=== PATIENT | female | born 1955 | race Caucasian/White ===

== ENCOUNTER 2020-11-30 01:28 | Inpatient (IN) | payer MEDICARE ==
--- NOTE | 2020-11-30 02:03 | NUR ---
PT IS ADMITTED TO UNIT FOR PREVIOUS ATTEMPTS OF SUICIDE. 2 WEEKS AGO SHE ATTEMPTED TO HANG HER SELF. BROUGHT HER TO [facility] DUE TO INABILITY TO SWALLOW SOLIDS. PT REPORTS THAT SHE ATTEMPTED TO HANG HERSELF 2 DAYS AGO AND HE HAD TO CUT HER DOWN. PT HAS A HX OF BIPOLAR AND DEPRESSION BUT RELATES THAT SHE DOESNT TAKE ANY MEDICATIONS. PT ARRIVED TO UNIT WITH EMS STAFF. ABLE TO AMBULATE ON HER OWN AND CONT OF BOWEL AND BLADDER. CALM AND COOPERATIVE WITH STAFF. COVID TEST COMPLETED AND SENT TO LAB. DISCUSSED ALL POLICIES WITH PT. PT STATES SHE WANTS TO BE A DNR AND IS NOT TO RECEIVED BLOOD TRANSFUSIONS. SHE STATES "THE ONLY PERSON TO CONTACT HER OR ASK ABOUT HER IS HER VANDANA. HIS PHONE NUMBER IS [phone]. LEFT 2 VOICEMAILS. PERSONAL ITEMS INVENTORIED AND PLACED IN STORAGE UNIT. CALM AND COOPERATIVE WITH STAFF.
[2020-11-30 05:01] VITALS: BP 95/72; BMI 24.2
[2020-11-30 06:14] LABS: BASOPHILS 0.3 % (0-2); EOSINOPHILS 0.6 % (0-7); HEMATOCRIT 41.8 % (36.0-48.0); HEMOGLOBIN 13.7 g/dL (12-16); IMMATURE GRANULOCYTES 0.3 % (0-5); LYMPHOCYTE ABS# 1.42 10x3/uL (1.18-3.74); LYMPHOCYTES 21.7 % (15-50); MCH 30.3 pg (26.0-34.0); MCHC 32.8 g/dL (31.0-37.0); MCV 92.5 fL (80.0-100.0); MEAN PLATELET VOLUME 10.5 fL (7.4-10.4); MONOCYTES 10.5 % (2-11); NEUTROPHIL ABS# 4.36 10x3/uL (1.56-6.13); NEUTROPHILS 66.6 % (40-80); PLATELET COUNT 304 10x3/uL (130-400); RBC 4.52 10x6/uL (4.00-5.40); RDW 13.4 % (11.5-14.5); WBC 6.6 10x3/uL (4.8-10.8)
[2020-11-30 08:04] LABS: ALBUMIN 3.3 g/dL (3.4-5.0); ALKALINE PHOSPHATASE 47 U/L (30-120); ALT (SGPT) 24 U/L (10-68); BILIRUBIN - TOTAL 0.75 mg/dL (0.2-1.3); CALC OSMOLALITY 279 mosm/kg (275-300); CALCIUM 8.7 mg/dL (8.5-10.1); CARBON DIOXIDE 25.6 mmol/L (21.0-32.0); CHLORIDE - SERUM 106 mmol/L (98-107); CHOL - HDL RATIO 4.3 ratio (2.3-4.1); CHOLESTEROL, TOTAL 156 mg/dL (0-200); CREATININE - SERUM 0.8 mg/dL (0.6-1.3); GLUCOSE 119 mg/dL (74-106); HDL CHOLESTEROL 36 mg/dL (32-96); LDL CHOLESTEROL 104 mg/dL (0-100); LDL-HDL RATIO 2.9 ratio (1.5-3.5); POTASSIUM - SERUM 4.4 mmol/L (3.5-5.1); SODIUM 139 mmol/L (136-145); THYROID STIMULATING HORMONE 3.55 uIU/mL (0.36-3.74); TRIGLYCERIDE 82 mg/dL (30-200); UREA NITROGEN 14 mg/dL (7-18); eGFR NON AFRICAN AMERICAN 76 mL/min (90-120)
[2020-11-30 08:14] VITALS: BP 104/67
--- NOTE | 2020-11-30 11:12 | NUR ---
The patient is concerned about a [employer] credit card. There is no [employer] credit card in her wallet. Spoke to the patient's spouse and he says he does not have the credit card and so he plans to cancel the card. Called the [facility] in [place], spoke to Miri and he said the patient was on Trazadone 50 mg PO at HS, but it has not been filled since July. He also said she was on Levothyroxine 25 mcg PO qa and Valproic Acid DR 1000 mg po at HS, but those have not been filled since 01/18/20. The spouse also states she was also on Invega injections, but she stopped taking the injections four months ago.
[2020-11-30 13:16] VITALS: Wt 69.8 kg
[2020-11-30 20:00] VITALS: BP 115/75
--- NOTE | 2020-11-30 22:17 | NUR ---
PT IS ALERT AND ORIENTED X4. SHE IS RECEIVED IN HER ROOM ON DROPLET ISOLATION. SHE IS CALM AND COOPERATIVE WITH STAFF. COMPLIANT WITH ALL MEDICATIONS. EASY TO REDIRECT. DENIES ANY SI AT THIS TIME. MONITOR FOR SAFETY.
[2020-12-01 09:00] VITALS: BP 128/82
--- NOTE | 2020-12-01 09:03 | NUR ---
The patient remains in her room, she has been pleasant and compliant to stay in her room as she is on isolation until her Covid test results. Unfortunately lab called and said we will need to do another Covid test, but they will not send it off until Wednesday. She ambulates, toilets, and feeds herself. She is anxious about being here. She denies S.I. Provide prescribed meds. The patient is compliant with meds. Continue POC.
--- NOTE | 2020-12-01 14:41 | NUR ---
The patient's spouse called and said "Elizabeth quit going to IOP because her eye and face began twitching while she was taking the Invega and she did not want to be seen like that." let him know "We appreciate the information, I'll pass it on."
--- NOTE | 2020-12-01 19:22 | NUR ---
RECEIVED IN BEDROOM. RESTING IN BED WITH EYES OPEN. CALM AND COOPERATIVE WITH CARE AND ASSESSMENT. NO STATEMENTS OF SELF HARM VOICED THIS EVENING. ENCOURAGE TO EXPRESS NEEDS. CONTINUE PLAN OF CARE.
[2020-12-01 21:35] VITALS: BP 112/74
--- NOTE | 2020-12-02 06:58 | NUR ---
COVID SWAB COLLECTED AND SENT TO LAB PER POLICY.
[2020-12-02 08:08] LABS: RAPID PLASMA REAGIN Non Reactive (Non Reactive)
[2020-12-02 10:31] VITALS: BP 120/89
--- NOTE | 2020-12-02 13:41 | PSY ---
PATIENT NAME:KALIN NUNEZ MEDICAL RECORD: [id number] : 53 LOCATION:[facility] ADMISSION DATE: 11/30/20 ACCOUNT: [id number] PSYCHIATRIC EVALUATION DATE OF EVALUATION: 11/30/20 IDENTIFYING DATA: This patient is a 65-year-old female who was admitted voluntarily to the hospital and appears her stated age. CHIEF COMPLAINT: Having difficulty swallowing. HISTORY OF PRESENT ILLNESS: The patient was brought to [facility] from early this a.m. after being brought to the Emergency Room after she had used a scarf to attempt to hang herself. Reportedly a couple days ago, the patient reports that she was having difficulty swallowing and therefore had stopped eating. The patient reports that she made a horrible-horrible mistake. She reports that she has been a burden to people. Spouse reports that she had admitted that she was trying to hurt herself to her spouse. Today, the patient was still questioning whether or not she had the ability to swallow any medications. The patient reports that she had taken Invega injection and that had helped; however, she is very concerned about whether or not insurance would pay for it and that they would not be able to afford it. The patient also reports that she feels very anxious. PAST MEDICAL HISTORY: The patient has a left hemifacial spasm. The patient reports that acupuncture has been helpful historically. She also states she has trouble swallowing. She has hypothyroidism. She has a history of constipation. PAST PSYCHIATRIC HISTORY: The patient reports that it was about the age of 39 when she first had her illness. The patient reports that she has had episodes where she had difficulty sleeping. She reports that she had one time when she could not sleep for several days. At that time, she did take some trazodone to help her sleep, which ended up to be a mistake because she took one and then another and then another and then another and ultimately took too many. She then states that the next day when she went and had her Invega injection that there was just something that happened and it really got messed up. The patient reports that she did attend an [facility] for about 3 to 4 hours one day a week. She last went to that in July. She states that she has been diagnosed with bipolar and anxiety and has a history of panic attacks. She states that alcohol used to help decrease her panic attacks and her anxiety. The patient states that she believes that she was in the hospital one time before. She states that the Invega injection was helpful and she just made a wrong decision by stopping it. FAMILY HISTORY: The patient reports that she has an uncle that was diagnosed with bipolar. She denies parents or siblings with any mental illness. SOCIAL HISTORY: The patient is . She has been for 43 years. They have one daughter, that daughter lives in [place]. She states that she does talk with her; however, the COVID has been rather distressing for them. 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 She and her worked together. She states they did something with schools. She states that she did use alcohol. She denies any other recreational drugs and she denies ever smoking. MENTAL STATUS EXAM: The patient's general appearance is mildly disheveled. She is alert and oriented to person, place, time and situation. Her speech is soft, low tone, low volume. Her associations are moderately loose. Her eye contact is good. Her judgment is impaired. Her impulsivity is moderate. Her affect is flat narrow in range. Her mood is depressed and anxious. She appears guarded. Her memory is fair for both recent and remote events. The patient does not appear to be actively attending to either visual or auditory hallucinations. The patient's judgment and insight into illness are poor. She appears to have some thought blocking. ASSESSMENT: AXIS I: Bipolar I disorder, most recent episode is depressed with anxiety. AXIS II: Deferred. AXIS III: Includes left hemifacial spasms, hypothyroidism. AXIS IV: Moderate stressors. AXIS V: Global assessment of functioning is 45. PLAN: At this time, the patient is going to be admitted for comprehensive medical, psychological, and social evaluation. She is going to be treated with both mood stabilizing, thought and memory enhancing medications. Her long-term prognosis is fair. We will also strive to keep the patient safe from harming herself. We will initiate Invega 6 mg by mouth daily. We will also restart her Depakote 1000 mg daily and her levothyroxine 25 mcg daily. We will draw her Depakote level on 12/01/2020. Also, psychoeducation regarding medications was provided to the patient. Dictated By: Hailey Wren APN I have interviewed/examined the above patient and agree with these documented findings. TRANSINT:[id number] Voice Confirmation ID: [id number] DOCUMENT ID: [id number] Dictated By: HAILEY WREN I have interviewed/examined the above patient and agree with these documented findings. PAU SHIPLEY MD at 1341 at 1319 CC: [id number] DICTATION DATE: 11/30/20 1538 MIXER OPERATOR VACUUM PAN SALT: 11/30/20 1616 ADM IN [facility] [address] [place] [address]
--- NOTE | 2020-12-02 17:45 | NUR ---
RECEIVED IN PATIENT ROOM. SITTING IN CHAIR. CALM AND COOPERATIVE WITH CARE AND ASSESSMENT. DENIES SUICIDAL IDEATION. REDRIECT AND REORIENT NEEDED. EATING DINNER AT THIS TIME. CONTINUE PLAN OF CARE.
--- NOTE | 2020-12-02 21:41 | NUR ---
RECEIVED IN BEDROOM. RESTING QUIETLY IN BED WITH EYES OPEN. CALM AND COOPERATIVE WITH CARE AND ASSESSMENT. NO STATEMENTS OF SELF HARM VOICED THIS EVENING. ENCOURAGE TO EXPRESS NEEDS. RESTING IN BED WITH EYES CLOSED AT THIS TIME. CONTINUE PLAN OF CARE.
[2020-12-02 22:55] VITALS: BP 111/71
[2020-12-03 00:06] LABS: BILIRUBIN NEGATIVE (NEGATIVE); KETONE NEGATIVE (NEGATIVE); NITRITE NEGATIVE (NEGATIVE); UROBILINOGEN NORMAL mg/dL (< 2)
[2020-12-03 00:08] LABS: BACTERIA FEW HPF (NONE SEEN); SQUAMOUS EPITHELIAL 0-5 HPF (0-4)
[2020-12-03 08:00] VITALS: BP 126/75
--- NOTE | 2020-12-03 11:37 | NUR ---
RECEIVED IN PATIENT ROOM. SITTING ON SIDE OF BED. COOPERATIVE WITH CARE AND ASSESSMENT. ANXIOUS. DENIES SUICIDAL IDEATION. REDIRECT AND REORIENT NEEDED. EATING DINNER AT THIS TIME. CONTINUE PLAN OF CARE.
--- NOTE | 2020-12-03 13:17 | PN ---
PATIENT:KALIN NUNEZ MEDICAL RECORD: [id number] LOCATION:[facility] ADMISSION DATE: 11/30/20 PROGRESS NOTE DATE OF SERVICE: 12/02/2020 SUBJECTIVE: The patient's case was discussed with staff. She has no new complaint. OBJECTIVE: The patient is in good behavioral control. She is taking her medications and feels that they are effective. ASSESSMENT: Dementia. PLAN: Current medicines have been reviewed. I am going to change her to a scheduled dose of Risperdal and will increase the dose of her Depakote slightly. TRANSINT:[id number] Voice Confirmation ID: [id number] DOCUMENT ID: [id number] PAU SHIPLEY MD at 1317 CC: [id number] DICTATION DATE: 12/02/20 1609 HADOOP SOFTWARE ENGINEER: 12/02/20 1734 ADM IN [place] [id number] [place] [address]
[2020-12-03 20:00] VITALS: BP 120/68
--- NOTE | 2020-12-03 20:40 | NUR ---
RECEIVED IN BEDROOM. RESTING IN BED WITH EYES CLOSED. RESPONDS TO VOICE. CALM AND COOPERATIVE WITH CARE AND ASSESSMENT. NO STAEMENTS OF SELF HARM VOICED THIS EVENING. STATES SHE IS HAVING ANXIETY THIS EVENING. ENCOURAGE TO EXPRESS NEEDS. CONTINUES TO REST QUIETLY IN BEDROOM. CONTINUE PLAN OF CARE.
--- NOTE | 2020-12-04 08:34 | PN ---
PATIENT:KALIN NUNEZ MEDICAL RECORD: [id number] LOCATION:[facility] ADMISSION DATE: 11/30/20 PROGRESS NOTE DATE OF SERVICE: 12/03/2020 SUBJECTIVE: The patient's case was discussed with staff. She has no new complaint. OBJECTIVE: The patient denies that she would seek to harm herself or others. She is tolerating her medications well. She has limited insight about her situation. ASSESSMENT: Bipolar disorder. PLAN: I am going to check a Depakote level and would anticipate she can be transitioned out of the hospital soon. TRANSINT:[id number] Voice Confirmation ID: [id number] DOCUMENT ID: [id number] PAU SHIPLEY MD at 0834 CC: [id number] DICTATION DATE: 12/03/20 1559 PRINCIPAL CYBER ENGINEER: 12/03/20 2305 ADM IN [place] [address] [place] [address]
--- NOTE | 2020-12-04 09:46 | NUR ---
Nutrition Re-assessment Diet: Regular PO intake: ~86% average x last 9 meals Last BM: none recorded since admit, per MD notes patient reports having BM yesterday. Wt: 149.8# (11/30/20), no new weight Meds noted: probiotics, levaquin, miralax. No new chem labs. Estimated nutrition needs and nutrition diagnosis remain unchanges from initial assessment. Meeting nutrition goals at this time. Recommendations/interventions: -Continue current diet. -RD will continue to monitor PO intake and wt trend. -RD will follow-up within 7 days.
--- NOTE | 2020-12-04 10:00 | NUR ---
conveyor worker spoke to patient's about discharge planning needs. Patient will go to Intensive outpatient therapy once discharged. Patient continues to have flat affect, but stated she was motivated to go home.conveyor worker reported this to patient's .No other needs expressed at this.
--- NOTE | 2020-12-04 12:30 | NUR ---
RECEIVED IN PATIENT ROOM. SITTING IN CHAIR. CALM AND COOPERATIVE WITH CARE AND ASSESMENT. DENIES SUICIDAL IDEATION. REDIRECT AND REORIENT NEEDED. EATING LUNCH AT THIS TIME. CONTINUE PLAN OF CARE.
[2020-12-04 20:00] VITALS: BP 98/70
[2020-12-05 09:37] VITALS: BP 123/80
--- NOTE | 2020-12-05 10:56 | NUR ---
casino worker observed patient in group process today.Patient has flat affect. Patient is not participating in any group process. However patient has started speaking to peers and trying not to isolate as much. Patient still presents as depressed.
--- NOTE | 2020-12-05 11:59 | PN ---
PATIENT:KALIN NUNEZ MEDICAL RECORD: [id number] LOCATION:[facility] ADMISSION DATE: 11/30/20 PROGRESS NOTE DATE OF SERVICE: 12/04/2020 SUBJECTIVE: The patient's case was discussed with staff. She has no new complaint. OBJECTIVE: The patient is in good behavioral control. She has poor insight about her situation. She does tolerate her medicines well. ASSESSMENT: Bipolar disorder. PLAN: Current medicines have been reviewed. I anticipate she can be transitioned out of the hospital soon if this level of improvement continues. TRANSINT:[id number] Voice Confirmation ID: [id number] DOCUMENT ID: [id number] PAU SHIPLEY MD at 1159 CC: [id number] DICTATION DATE: 12/04/20 1642 RN SURGICAL PCU: 12/04/20 2309 ADM IN [facility] [address] [place] [address]
--- NOTE | 2020-12-05 15:12 | NUR ---
NURSE CALLED PT DAUGHTER BACK AMELIA AT THIS TIME. PASSCODE GIVEN. SHE INQUIRED ABOUT PT READINESS FOR DISCHARGE. SHE STATED CONCERN ABOUT HER GOING HOME WITH HER HAVING ATTEMPTED TO HANG HERSELF A FEW BRANDO AGO. NURSE TALKED WITH HER AND UNDERSTOOD HER CONCERNS ABOUT HER MOTHER D/C. SHE STATED SHE NOTICED THIS HAPPENS ABOUT EVERY YEAR AND SHE NOTICES THAT IT TAKES HER MOTHER ABOUT 2 WEEKS TO GET IN HER SYSTEM AND ACTUALLY WORK. SHE CONTS TO REFUSE THE MEDICATIONS. IT USUALLY DOES NOT WORK IN 5 DAYS. THATS WHY I'M CALLING TO SEE WHY SHE IS BEING D/C SO EARLY. NURSE STATED SHE WAS PARTICPATING IN GROUPS, ACTIVE WITH STAFF, SOCIALIZING WITH PEERS, COMPLIANT WITH MEDS, VITAL AND ASSESSMENTS. PT IS NOT ISOLATING IN ROOM. DENIES SI. PT IS ALERT AND ORIENT AND IS HER OWN PERSON. SHE DENIED SI AT THIS TIME. NURSE TRANSFERRED PT TO ROLL OUT MANAGER KHUSHBU AT THIS TIME.
--- NOTE | 2020-12-05 16:25 | NUR ---
PT SITTING AT TABLE AT THIS TIME SOCIALIZING WITH PTS AND STAFF AT THIS TIME. PT IS CALM AND COOPERATIVE AT THIS TIME. FLAT AFFECT NOTED. PT IS COMPLIANT WITH MEDS, VITALS AND ASSESSMENTS. PT CAN MAKE NEEDS KNOWN. PT IS ALERT AND ORIENTED TO PERSON, PLACE AND TIME. PT DENIES SI. PT EATING MEALS AT THIS TIME. PT HAS DAMAGE TO LEFT SIDE OF FACE. DENIES PAIN. CAN MAKE NEEDS KNOWN. AMBULATES. WILL CONT PLAN OF CARE.
[2020-12-05] MEDS ORDERED: RisperDAL PO (18:27)
[2020-12-05] MEDS ORDERED: TRAZODONE HCL50 MG PO (18:27)
[2020-12-05] MEDS ORDERED: DEPAKOTE500 MG PO (18:27)
[2020-12-05] MEDS ORDERED: SYNTHROID25 MCG PO (18:28)
[2020-12-05] MEDS ORDERED: MIRALAX17 GM PO (18:28)
[2020-12-05] MEDS ORDERED: FLORAJEN3 CAPS460 MG PO (18:28)
[2020-12-05 20:00] VITALS: BP 112/73
--- NOTE | 2020-12-05 21:48 | NUR ---
PT IS ALERT AND ORIENTED X4. ABLE TO VOICE NEEDS AND WANTS. DENIES SI. COMPLIANT WITH MEDICATIONS. RELATES THAT SHE DOESNT LIKE THE DESERYL BECAUSE SHE FEELS IT MAKES THE TWITCH IN HER EYE WORSE. EASY TO REDIRECT. MONITOR FOR SAFETY.
--- NOTE | 2020-12-06 09:38 | NUR ---
NURSE SPOKE WITH DR. BANKS IN REGARDS TO PT C&S. NEW ORDER: LEVAQUIN 500 MG DAILY X 3 DOSES. NURSE CALLED IN PATIENTS NEW ORDER FOR LEVAQUIN 500 MG DAILY X 3 DOSES. PHARMAIST GILLES REQUESTED DR. BANKS NPI #, HOSPITAL ADDRESS AND NAME, AND CALLBACK NUMBER. COPY OF PT MICROBIOLOGY WITH DOCTOR ORDER IN THE CHART. WILL ADMINISTER MEDICATIONS WHEN AVALIABLE.
--- NOTE | 2020-12-06 11:00 | NUR ---
NURSE SITTING AT TABLE AT THIS TIME. CALM AND COOPERATIVE AT THIS TIME. COMPLIANT WITH MEDS, VITALS AND ASSESSMENTS. NO BEHAVIOR NOTED. PT ALERT AND ORIENTED TO PERSON, PLACE AND TIME.
--- NOTE | 2020-12-06 12:09 | NUR ---
PT DID RECIEVE FIRST DOSE OF ANTIBIOTICS PER ORDER. PT TOLERATED WELL. WILL CONT TO MONITOR FOR S/SX.
--- NOTE | 2020-12-06 13:20 | NUR ---
NURSE EDUCATED PT ON MEDICATION ADMINISTATION AND THE IMPORTANCE OF ADHERING TO MEDICATION ROUTINE. SHE VERBALIZIED UNDERSTANDING. NURSE WENT OVER MEDICATIONS WITH PT AND AT THAT TIME. THEY VERBALIZIED UNDERSTANDING. ALL PERSONAL BELONGINGS SENT WITH PT.
[2020-12-06 14:13] VITALS: BP 151/96
--- NOTE | 2020-12-09 13:27 | PN ---
PATIENT:KALIN NUNEZ MEDICAL RECORD: [id number] LOCATION:[facility] ADMISSION DATE: 11/30/20 PROGRESS NOTE DATE OF SERVICE: 12/05/2020 SUBJECTIVE: The patient's case was discussed with staff. She has no new complaint. OBJECTIVE: The patient has a euthymic mood and is tolerating her medicines well. She has no thoughts of harming herself or others and is wanting to be discharged. ASSESSMENT: Bipolar disorder. PLAN: I would prefer the patient stay a little longer to ensure that she is adequately stabilized and I have advised her to do so, but she refuses. I do not feel strongly enough about this to hold her against her will or to cause her the sort of difficulty that she would have being discharged against medical advice, but this is a little bit quicker than I would have preferred. I will discharge her tomorrow and followup is to be with her primary care physician as well as her outpatient psychiatrist in [place]. TRANSINT:[id number] Voice Confirmation ID: [id number] DOCUMENT ID: [id number] PAU SHIPLEY MD at 1327 CC: [id number] DICTATION DATE: 12/05/20 1823 HOURLY ASSOCIATE: 12/05/20 2142 DIS IN 12/06/20 [facility] [address] [place] [address]
== END 2020-12-06 13:20 | disposition home or self-care (01) | DRG 885 ==
LOC: D.PSYCH 01:28
PROVIDERS: ADMIT Psychiatry & Neurology Psychiatry; ATTEND Psychiatry & Neurology Psychiatry
DX: F31.30 Bipolar disorder, current episode depressed, mild or moderate severity, unspecified (principal); R45.851 Suicidal ideations; N39.0 Urinary tract infection, site not specified; Z20.822 Contact with and (suspected) exposure to COVID-19; E03.9 Hypothyroidism, unspecified; K59.09 Other constipation; G51.32 Clonic hemifacial spasm, left